=== PATIENT | female | born 1970 | race Caucasian/White ===

== ENCOUNTER 2016-05-15 21:14 | Emergency (ER) | payer OTHER ==
[~2016-05-15 21:14] MED LIST: ADVAIR 100-501 EACH; ALBUTEROL SULF8.5 GM IH; ALBUTEROL17 GM INH; AMBIEN10 M1 PO; ASPIRIN EC81 MG PO; ASPIRIN LOW STR81 MG PO; BACTROBAN22 G1 TP; CALCIUM 500 MG1 TAB PO; CLARITIN10 M6 PO; CLARITIN10 MG PO; CLEOCIN HCL300 M1 PO; COZAAR50 M1 PO; COZAAR50 MG PO; CPAP; DEPO-PROVE150 MG/11; DEPO-PROVERA; DICLOFENAC; DICLOFENAC SOD100 M1 PO; DICLOFENAC SODI75 M2 PO; DICYCLOMINE HCL20 M1 PO; ESOMEPRAZOLE MA40 MG PO; FLONASE ALLERG9.9 ML; GLIPIZIDE10 M2 PO; GLIPIZIDE10 MG PO; HUMALOG100 UNITS/; HYDROCODONE-AP473 ML PO; LANTUS SOL100 UNIT/1 SC; LANTUS SOLOSTAR3 ML SQ; LASIX20 MG PO; LASIX40 M1 PO; LASIX40 MG PO; LISINOPRIL10 MG PO; LOPRESSOR100 M1 PO; LORTAB 5-500 T1 EAC1 PO; LORTAB 5-500 T1 EACH PO; LOSARTAN; METOPROLOL TART25 MG PO; NASONEX17 G1; NORCO 5/325 TAB1 TAB PO; NORCO 7.5-3251 EACH PO; NOVOLOG MI100 UNIT/1 SC; NOVOLOG100 U/M SC; PHENTERMINE H37.5 M1 PO; PRILOSEC20 MG PO; PROAIR HFA8.5 GM PO; PROBIOTIC1 EA10 PO; RELAFEN750 MG PO; SAVELLA50 M1 PO; SIMVASTATIN PO; SIMVASTATIN20 M1 PO; SIMVASTATIN20 MG PO; SINGULAIR10 M1 PO; SUMATRIPTAN SU100 M1 PO; TETRACYCLINE H500 MG PO; TRULICITY1.5 MG/0.5 SQ; TYLENOL325 M2 PO; ULTRAM50 MG PO; VITAMIN D-32000 UNI3 PO; VITAMIN D5000 UNI2 PO; ZOFRAN4 M2 PO; [UNRECOGNIZED DRUG - OTHER] PO
[2016-05-15] MEDS ORDERED: NORVASC10 M2 PO (21:30)
[2016-05-15] MEDS ORDERED: NORCO 5-325 TA1 EACH PO (22:12)
[2016-05-15] MEDS ORDERED: CEFDINIR300 M1 PO (22:14)
[2016-07-03] MEDS ORDERED: CLARITIN-D 241 EAC2 PO (10:16)
[2016-07-03] MEDS ORDERED: MIRALAX17 G2 PO (10:17)
[2016-07-03] MEDS ORDERED: TUMERIC PO (10:18)
[2016-07-03] MEDS ORDERED: GLUCOSAMINE CH1 EAC8 PO (10:19)
[2016-07-03] MEDS ORDERED: BENTYL10 M1 PO (10:19)
[2016-07-03] MEDS ORDERED: PROMETHAZINE HC25 M3 PO (10:20)
[2016-07-03] MEDS ORDERED: TOPAMAX25 M3 PO (10:21)
[2016-07-03] MEDS ORDERED: BETAMETHASONE D15 G5 TOP (10:21)
[2016-07-03] MEDS ORDERED: VICTOZA 2-0.6 MG/0.1 SC (10:21)
[2016-07-03] MEDS ORDERED: PHENTERMINE H37.5 M2 PO (10:21)
[2016-11-13] MEDS ORDERED: LEVAQUIN750 M1 PO (18:48)
[2016-11-13] MEDS ORDERED: ASPIRIN EC81 MG PO (18:54)
[2016-11-13] MEDS ORDERED: NOVOLOG100 UNITS/ SC ×4 (18:56→18:57)
[2016-11-13] MEDS ORDERED: ZOFRAN ODT4 MG PO (21:16)
[2016-11-13] MEDS ORDERED: HYDROCODON-ACE1 EA16 PO (21:16)
== END 2016-05-15 22:20 ==
LOC: EDMED 21:14
DX: M25.521 Pain in right elbow (principal); M25.531 Pain in right wrist; M25.551 Pain in right hip; H66.92 Otitis media, unspecified, left ear; I10 Essential (primary) hypertension; E11.9 Type 2 diabetes mellitus without complications; W01.0XXA Fall on same level from slipping, tripping and stumbling without subsequent striking against object, initial encounter; Y92.69 Other specified industrial and construction area as the place of occurrence of the external cause; Y99.0 Civilian activity done for income or pay

== ENCOUNTER 2016-07-17 09:09 | Inpatient (IN) | payer OTHER ==
[~2016-07-17 09:09] MED LIST changes: +BENTYL10 M1 PO; +BETAMETHASONE D15 G5 TOP; +CEFDINIR300 M1 PO; +CLARITIN-D 241 EAC2 PO; +GLUCOSAMINE CH1 EAC8 PO; +MIRALAX17 G2 PO; +NORCO 5-325 TA1 EACH PO; +NORVASC10 M2 PO; +PHENTERMINE H37.5 M2 PO; +PROMETHAZINE HC25 M3 PO; +TOPAMAX25 M3 PO; +TUMERIC PO; +VICTOZA 2-0.6 MG/0.1 SC
[2016-07-17 10:21] LABS: PROTHROMBIN TIME 11.2 SECONDS (9.0-13.6)
[2016-07-17 10:28] LABS: ANION GAP 15 mmol/L (0-20); BLOOD UREA NITROGEN 16 mg/dl (6-24); CALCIUM 8.8 mg/dl (8.5-10.5); CARBON DIOXIDE-VENOUS 24 mmol/L (22-32); CHLORIDE 102 mmol/l (96-110); GLUCOSE 222 mg/dL (70-110); POTASSIUM 3.9 mmol/L (3.7-5.1); SODIUM 137 mmol/L (135-145); eGFR VALUE FOR BLACK >90 mL/Min
[2016-07-18 06:20] LABS: BASO % 0.4 % (0-2); BASO ABSOLUTE COUNT 0.1 tho/cmm (0.0-0.2); EOS % 4.4 % (0-7); EOSINOPHIL ABSOLUTE COUNT 0.7 tho/cmm (0.0-0.7); HCT-HEMATOCRIT 37.8 % (34.0-49.0); HGB-HEMOGLOBIN 12.2 gm/dl (12.0-15.5); IMMATURE GRANULOCYTES ABSOLUTE 0.05 tho/cmm (0-0.03); IMMATURE GRANULOCYTES PERCENT 0.3 % (0-0.3); LYMPH % 25.4 % (20-45); MCH (MEAN CORPUSCULAR HGB) 28.4 pg (28.0-32.0); MCHC MEAN CORPUSCULAR HGB CONC 32.3 % (32.0-36.0); MCV (MEAN CELL VOLUME) 87.9 fl (82.0-96.0); MEAN PLATELET VOLUME 9.4 cmc (9.4-12.4); MONO % 7.4 % (0-12); MONOCYTE ABSOLUTE COUNT 1.2 tho/cmm (0.0-1.2); NEUTROPHIL ABSOLUTE COUNT 9.7 tho/cmm (1.6-8.0); NEUTROPHIL-AUTOMATED 9.7 tho/cmm (1.6-8.0); NEUTROPHILS % 62.1 % (40-80); PLATELET COUNT 406 tho/cmm (150-450); RED CELL DISTRIBUTION WIDTH 13.5 % (12.4-16.4); WHITE BLOOD COUNT 15.6 tho/cmm (4.0-10.0)
[2016-07-19] MEDS ORDERED: ASPIRIN325 M3 PO (09:23)
[2016-07-19] MEDS ORDERED: ULTRAM50 M1 PO (09:24)
[2016-07-19] MEDS ORDERED: ROXICODONE5 M2 PO (09:25)
[2016-07-19] MEDS ORDERED: TYLENOL325 M2 PO (11:12)
[2016-07-19] MEDS ORDERED: SENOKOT-S TABL1 EACH PO (11:13)
[2016-07-19] MEDS ORDERED: TRESIBA FL200 UNIT/1 SC (11:16)
[2016-11-13] MEDS ORDERED: LEVAQUIN750 M1 PO (18:48)
[2016-11-13] MEDS ORDERED: ASPIRIN EC81 MG PO (18:54)
[2016-11-13] MEDS ORDERED: NOVOLOG100 UNITS/ SC ×4 (18:56→18:57)
[2016-11-13] MEDS ORDERED: HYDROCODON-ACE1 EA16 PO (21:16)
[2016-11-13] MEDS ORDERED: ZOFRAN ODT4 MG PO (21:16)
== END 2016-07-19 14:33 | DRG 470 ==
LOC: SHSA 09:09 → ORE 11:55 → PACU 13:53 → 5EA 15:50
PROVIDERS: Nurse Practitioner Acute Care; ADMIT Orthopaedic Surgery Sports Medicine
PROC: 0SRC0J9 Replacement of Right Knee Joint with Synthetic Substitute, Cemented, Open Approach (ICD-10-PCS; principal; 2016-07-17)
DX: M17.11 Unilateral primary osteoarthritis, right knee (principal); E11.40 Type 2 diabetes mellitus with diabetic neuropathy, unspecified; Z68.42 Body mass index [BMI] 45.0-49.9, adult; I10 Essential (primary) hypertension; E66.01 Morbid (severe) obesity due to excess calories; G47.33 Obstructive sleep apnea (adult) (pediatric); Z79.82 Long term (current) use of aspirin; Z79.4 Long term (current) use of insulin; Z79.84 Long term (current) use of oral hypoglycemic drugs; Z79.899 Other long term (current) drug therapy; Z87.891 Personal history of nicotine dependence
CPT/HCPCS: C1713; C1776; J0171; J1170; J1815; J1885; J2270; J2795; J3010